=== PATIENT | male | born 1960 | race Caucasian/White ===

== ENCOUNTER 2016-12-06 15:44 | Emergency (ER) | payer OTHER ==
[~2016-12-06] VITALS: Ht 172.7 cm; Wt 99.8 kg
[~2016-12-06 15:44] MED LIST: DOXYCYCLINE HYC50 M1 PO; FLOMAX0.4 M1 PO; FLUOXETINE HCL10 M2 PO; IBUPROFEN800 M1 PO; LAMICTAL200 M1 PO; LITHIUM CARBON300 M4 PO; ZOFRAN4 M2 PO
[2016-12-06 16:17] LABS: ABSOLUTE BASOPHIL COUNT 0 /CUMM (0.0-0.2); ABSOLUTE EOSINOPHIL COUNT 0.3 /CUMM (0.0-0.7); ABSOLUTE GRANULOCYTE CT 4.4 /CUMM (1.4-6.5); ABSOLUTE LYMPH COUNT 2.4 /CUMM (1.2-3.4); ABSOLUTE MONOCYTE COUNT 0.6 /CUMM (0.10-0.60); BASOPHIL % 0.5 % (0.0-2.0); EOSINOPHIL % 3.4 % (0-5); GRANULOCYTE % 57.8 % (42.2-75.2); HEMATOCRIT 37.1 % (42-52); MEAN CORPUSCULAR HGB CONC 34.7 G/DL (33.0-37.0); MEAN CORPUSCULAR VOLUME 86.7 FL (80.0-94.0); MEAN PLATELET VOLUME 7.4 FL (7.4-10.4); PLATELET COUNT 264 /CUMM (130-400); RBC DISTRIBUTION WIDTH 13.7 % (11.5-14.5); RED BLOOD CELL CT 4.28 /CUMM (4.70-6.10); WHITE BLOOD CELL COUNT 7.6 /CUMM (4.8-10.8)
--- NOTE | 2016-12-06 18:46 | ED AMS/SEIZURE/WEAK/DIZZY ---
History of Present Illness General Chief Complaint: General Adult Stated Complaint: UTI? Source: patient Exam Limitations: no limitations Vital Signs & Intake/Output Vital Signs & Intake/Output Vital Signs Date Time Temp Pulse Resp B/P B/P Pulse O2 O2 Flow FiO2 Mean Ox Delivery Rate 12/06 1930 98.7 52 18 134/79 100 12/06 1825 Room Air 12/06 1552 98.6 70 15 158/90 98 Room Air Room Air Allergies Coded Allergies: Opioids-Methadone and Related (Mild, PER PT RECOVERING OPIOD USE 12/06/16) Reconcile Medications Doxycycline Hyclate 50 MG CAPSULE 1 CAP PO BID ANTIBIOTIC, INFECTION ( Reported) Fluoxetine HCl 10 MG CAPSULE 1 CAP PO DAILY MENTAL HEALTH (Reported) Ibuprofen 800 MG TABLET 1 TAB PO TID PRN PAIN Lamotrigine (Lamictal) 200 MG TABLET 1 TAB PO DAILY MENTAL HEALTH (Reported) Spelter Carbonate 300 MG CAPSULE 1 CAP PO DAILY MENTAL HEALTH (Reported) Ondansetron HCl (Zofran) 4 MG TABLET 1 TAB PO Q6-8P NAUSEA Tamsulosin HCl (Flomax) 0.4 MG CAP.ER.24H 1 CAP PO DAILY PROSTATE (Reported) Triage Note: PT TO ED FOR C/C OF FEELING "REALLY RUN DOWN AND TIRED." PT REPORTS HE WAS TREATED FOR A UTI A FEW MONTHS AGO AND SYMPTOMS FEEL THE SAME. PT DENIES ANY ABD COMPLAINTS OR URINARY SYMPTOMS. PT HAS SCAB WITH SOME REDNESS AROUND IT ON HIS R FOREARM AND IS UNSURE IF IT'S RELATED TO IT. NOT SURE IF HE STARTED TO FEEL BAD BEFORE HE NOTICED SCAB ON BODY. DENIES FEVER, SOB, CHEST PAIN. Triage Nurses Notes Reviewed? yes HPI: Eron is a 56 yo male with past medical history of hypertension, bipolar, emphysema and previous UTI presenting to the ED for fatigue. Patient states since been ongoing for several months. A few months ago he was treated for UTI. He does not have any urinary symptoms at this point in time or abdominal pain however he is unsure what the cause of the fatigue is. Ring if he could have another UTI. Patient denies any fever or chills. No unintentional weight loss. Somewhat decreased appetite but no change in bowel or bladder habits. No unintentional weight loss. Patient denies any bright red per rectum or melanotic stools. No chest pain, abdominal pain, nausea, vomiting, diarrhea. Patient denies any ill contacts. No cardiac arrhythmias or palpitations. Right forearm has small scab noted in triage. (SWEETIE MAK MD) Past History Travel History Traveled to [place] past 21 day No Medical History Any Pertinent Medical History? see below for history Neurological: NONE EENT: NONE Cardiovascular: hypertension Respiratory: emphysema Gastrointestinal: NONE Hepatic: NONE Renal: NONE Musculoskeletal: NONE Psychiatric: bipolar disease, RECOVERING DRUG USER RECOVERING ETOH Endocrine: NONE Blood Disorders: NONE Cancer(s): NONE [employer] WORKER/Reproductive: UTI Surgical History Surgical History: N Psychosocial History What is your primary language Welsh Tobacco Use: Quit >30 days ago ETOH Use: denies use Illicit Drug Use: denies illicit drug use Family History Hx Contributory? No (SWEETIE MAK MD) Review of Systems Review of Systems Constitutional: Reports: malaise, weakness. EENTM: Reports: no symptoms. Respiratory: Reports: no symptoms. Cardiovascular: Reports: no symptoms. GI: Reports: no symptoms. Genitourinary: Reports: no symptoms. Musculoskeletal: Reports: no symptoms. Skin: Reports: no symptoms. Neurological/Psychological: Reports: no symptoms. Hematologic/Endocrine: Reports: no symptoms. Immunologic/Allergic: Reports: no symptoms. All Other Systems: Reviewed and Negative (SWEETIE MAK MD) Physical Exam Physical Exam General Appearance: well developed/nourished, no apparent distress, alert, awake , comfortable Head: atraumatic, normal appearance Eyes: Bilateral: normal appearance, PERRL, EOMI. Ears, Nose, Throat: normal pharynx, normal ENT inspection, hearing grossly normal Neck: normal inspection, supple, full range of motion Respiratory: normal breath sounds, chest non-tender, no respiratory distress Cardiovascular: regular rate/rhythm Gastrointestinal: normal bowel sounds, soft, non-tender Back: normal inspection, normal range of motion Extremities: normal range of motion Neurologic/Psych: no motor/sensory deficits, awake, alert, oriented x 3, normal gait, normal mood/affect Skin: intact, normal color, warm/dry Lymphatic: no anterior cervical kristy Core Measures ACS in differential dx? No CVA/TIA Diagnosis: No Severe Sepsis Present: No Septic Shock Present: No (SWEETIE MAK MD) Progress Differential Diagnosis: arrythmia, anemia, dehydration, electrolyte imbalance, GI bleed, hypoglycemia, UTI/pyelo Plan of Care: Orders Procedure Date/time Status Add-on Test (ER Only) 12/06 1847 Active THYROID STIMULATING HORMONE 12/06 160 Complete URINALYSIS 12/06 155 Complete TROPONIN LEVEL 12/06 155 Complete COMPREHENSIVE METABOLIC PANEL 12/06 1556 Complete CBC WITHOUT DIFFERENTIAL 12/06 1556 Complete EKG 12/06 1556 Active Laboratory Tests 12/06/16 1612: Urine Color YEL, Urine Clarity CLEAR, Urine pH 6.0, Ur Specific [place] 1.020, Urine Protein NEG, Urine Ketones NEG, Urine Nitrite NEG, Urine Bilirubin NEG, Urine Urobilinogen 0.2, Ur Leukocyte Esterase NEG, Ur Microscopic SEDIMENT EXAMINED, Urine RBC RARE, Urine Bacteria RARE H, Urine Hemoglobin SMALL H, Urine Glucose NEG 12/06/16 1605: Anion Gap 11, Estimated GFR > 60, BUN/Creatinine Ratio 18.9, Glucose 81, Calcium 9.5, Total Bilirubin 0.5, AST 26, ALT 46, Alkaline Phosphatase 57, Troponin I < 0.01, Total Protein 7.7, Albumin 4.6, Globulin 3.1, Albumin/Globulin Ratio 1.5, TSH 1.350, CBC w Diff NO MAN DIFF REQ, RBC 4.28 L, MCV 86.7, MCH 30.0, RDW 13.7 , MPV 7.4, Gran % 57.8, Lymphocytes % 30.9, Monocytes % 7.4, Eosinophils % 3.4, Basophils % 0.5, Absolute Granulocytes 4.4, Absolute Lymphocytes 2.4, Absolute Monocytes 0.6, Absolute Eosinophils 0.3, Absolute Basophils 0, PUBS MCHC 34.7 Patient otherwise well-appearing. No specific symptoms today such as chest pain or abdominal pain. Patient complaining of generalized fatigue and malaise. No unintentional weight loss fevers or chills. No palpitations or shortness of breath. No change in patient's ability to perform his ADLs. Plan to obtain basic labs to assess for possible anemia or electrolyte disturbance. We will add on TSH results for possible hypothyroidism as cause of his symptoms. Plan to obtain UA given the patient's history of a UTI. Labs essentially unremarkable. TSH within normal limits. H&H is stable without any evidence of anemia. No evidence of leukocytosis to suggest infectious process. EKG is otherwise unremarkable. Plan to discharge patient home with follow-up with his primary care doctor as needed. No indication for admission at this point in time. (SWEETIE MAK MD) Initial ED EKG: normal axis, normal intervals, normal p-waves, normal QRS complex, normal sinus rhythm (SWEETIE MAK MD) Departure Departure Time of Disposition: 1951 Disposition: HOME OR SELF CARE Condition: Stable Clinical Impression Primary Impression: Fatigue Qualifiers: Fatigue type: unspecified Qualified Code: R53.83 - Other fatigue Referrals: GRAEME CASTILLO,GUILHERME Back (PCP/Family) Additional Instructions: Please follow up with your primary care doctor in 1-2 days for outpatient workup. If you develop chest pain, difficulty breathing, or any other concerning symptoms, please return to the ED for evaluation. Departure Forms: Customer Survey General Discharge Information (SWEETIE MAK MD) Resident Co-Sign Statement Statement: ED Attending supervision documentation- [X] I saw and evaluated the patient. I have also reviewed all the pertinent lab results and diagnostic results. I agree with the findings and the plan of care as documented in the Resident's documentation. [X] I have reviewed the ED Record and agree with the Resident's documentation. [] Additions or exceptions (if any) to the Resident's note and plan are summarized below: [] (RUPALI CASTILLO,BILLY Tomas)
--- NOTE | 2016-12-06 19:20 | RADIOLOGY REPORT ---
EXAMINATION: XR CHEST CLINICAL INFORMATION: Fatigue. Decreased breath sounds right lung base COMPARISON: CT abdomen pelvis 01/22/2016 TECHNIQUE: 2 views of the chest were obtained. FINDINGS: Small vague linear opacity at the left costophrenic angle this is consistent with small linear scar as seen on the CT abdomen pelvis of 01/22/2016. There is no acute infiltrate. No pulmonary vascular congestion. No infiltrate or pleural effusion. The heart size is normal. The cardiac and mediastinal contours are normal. There are multilevel degenerative changes of dorsal spine. IMPRESSION: No acute abnormality the chest.
[2016-12-06 19:30] VITALS: BP 134/79
== END 2016-12-06 20:18 ==
LOC: ERH 15:44
PROVIDERS: Emergency Medicine
DX: R53.83 Other fatigue (principal)
CPT/HCPCS: 81001; 93005; 93010

== ENCOUNTER → 2017-08-01 | Day surgery (SDC) | payer OTHER ==
[~2017-08-01] VITALS: Ht 172.7 cm; Wt 104.3 kg
--- NOTE | 2017-08-04 09:35 | Operative Report ---
Operative/Inv Procedure Report Surgery Date: 08/01/17 Name of Procedure: Open mesh (4 cm) repair of incarcerated umbilical hernia Pre-Operative Diagnosis: Incarcerated umbilical hernia Post-Operative Diagnosis: Same Estimated Blood Loss: scant Surgeon/Weld Engineer: Finesse CASTILLO,Bryson LAZCANO Anesthesia: general endotracheal tube Operative/Procedure Note Note: Patient was placed on the OR table in the supine position. After successful induction of general anesthesia, another timeout was done, antibiotics given, the abdomen was clipped prepped and draped in the usual sterile fashion. An incision was planned overlying the hernia, this spot was infiltrated with local anesthetic and then made with a 15 blade. This was deepened with cautery and the herniated fat and overlying sac were dissected circumferentially off the fascia, defining the true edges of the defect. It was oriented horizontally, we then inserted the Ventralex coated 4.3 centimeter mesh underneath the defect using the tails to center it and then closed the defect with interrupted 2-0 Maxon sutures in this case 4, incorporating the mesh with each bite. The subcutaneous layer and Carola's fascia were reapproximated to cover. The incision was irrigated and then the skin was reapproximated with a running subcuticular 4-0 Biosyn, followed by Mastisol, Steri-Strips Telfa Tegaderm. EBL minimal lap and sponge counts correct wound expectancy clean IV fluids crystalloid complications none patient tolerated the procedure well was awakened extubated returned to the recovery room in satisfactory condition.
== END ==
LOC: STS 02:50
DX: K42.0 Umbilical hernia with obstruction, without gangrene (principal); I10 Essential (primary) hypertension; J44.9 Chronic obstructive pulmonary disease, unspecified; Z87.891 Personal history of nicotine dependence
CPT/HCPCS: C1781; J0690; J2250